=== PATIENT | male | born 1960 | race Caucasian/White ===

== ENCOUNTER 2020-10-02 16:54 | Emergency (ER) | payer OTHER, SELFPAY ==
[2020-10-02 18:43] VITALS: BP 143/88; PULSE 75; RESP 18; TEMP 37.4; O2SAT 96; BMI 31.0
--- NOTE | 2020-10-02 19:18 | ED_ITS ---
HPI - General Adult General Chief complaint: Upper Respiratory Symptoms Stated complaint: covid symptoms Time Seen by Provider: 10/02/20 17:34 Source: patient Mode of arrival: ambulatory Limitations: no limitations History of Present Illness HPI narrative: 60-year-old male who presents the emergency department for evaluation of COVID 19 like symptoms. The patient states that his mother, brother and sister tested positive for COVID-19. He states that 1 week prior he tested negative. He states that 4 days prior he started to get sick with COVID like symptoms he is currently complaining of headache, feeling hot and cold, chills, palpitations, nonproductive cough, shortness of breath, myalgias, and diarrhea. He states that over the past 2 days he had multiple episodes of diarrhea, too numerous to count which improved today. He states that he has occasional chest discomfort with coughing which he describes as sharp and mild in intensity he states that he has been taking TheraFlu at home and [place] tea with honey with no improvement of his symptoms. He denied dyspnea on exertion, weakness, lightheadedness or dizziness.. Related Data Allergies Allergy/AdvReac Type Severity Reaction Status Date / Time No Known Allergies Allergy Unverified 05/26/20 19:44 [No Known Allergies*] Review of Systems Review of Systems: Yes all other systems are reviewed and are negative Neurologic: Reports Abnormal speech present [facility] Past Medical History [facility] Narrative: The patient lives with his mother and sister were both COVID positive. He denies tobacco use, he denies alcohol use, he smokes marijuana occasionally, he last smoked marijuana 2 weeks prior. Medical History Gout HTN (hypertension) Social History Social History Advance Directives: No Advance Directives Information Provided: No Physical Exam Vital Signs: Vital Signs: Last Vital Signs Temp 99.3 F 10/02/20 18:43 Pulse 75 10/02/20 18:43 Resp 18 10/02/20 18:43 BP 143/88 H 10/02/20 18:43 Pulse Ox 96 10/02/20 18:43 Body Mass Index 31.0 Const: General: cooperative and healthy appearing Orientation/consciousness: oriented to person and oriented to place L imitations: no limitations HENMT: Head: Yes normal to inspection, Yes normocephalic and Yes atraumatic Ears: external ears normal General nose exam: Normal external nose present Face and sinus: Yes normal facial exam Mouth: Normal oral and palatal mucosa present Throat: Yes posterior oropharynx normal Eyes: Periorbital: periorbital findings normal Eyelids: Yes eyelids normal Conjunctivae: conjunctivae normal Sclerae: sclerae normal Corneas: corneas normal Pupils: Equal, round and reactive pupils present Direct Ophthalmoscopy: normal light reflex Neck: Neck: Yes full ROM, Yes no lymphadenopathy, Yes no meningeal signs, Yes trachea midline and Yes supple Chest: Chest palpation & inspection: normal inspection of the chest and normal palpation of entire chest wall Resp: Effort & Inspection: normal respiratory effort and able to speak in complete sentences Auscultation: clear to auscultation bilaterally Cardio: Rate: regular rate Rhythm: regular rhythm Heart sounds: S1 normal heart sound present, S2 normal heart sound present and no murmurs GI: Inspection: Yes normal to inspection Palpation (GI): Soft to palpation, nontender, no guarding, not rigid and No hepatosplenomegaly present : General: Yes no CVA tenderness Back/Spine/Pelvis: Back: no CVA tenderness Cervical Spine: normal cervical lordosis Thoracic/Lumbar Spine: thoracic and lumbar spine normal to inspection Skin: Lesions: no lesions Rashes: no rashes Wounds: no wounds Neuro: General: oriented to person, oriented to place and no meningeal signs Cranial nerves: Yes Equal, round and reactive pupils present Cognition (Neuro): normal cognition Speech: Abnormal speech present Motor exam (neuro): 5/5 motor strength present throughout Extrem: General: Yes normal to inspection and Yes full ROM Psych: Appearance: well kempt Mental Status: mental status grossly normal Speech and movement: Normal speech and movement present Affect: normal affect Attitude: cooperative Thought process: Normal thought process present Thought content: Normal thought content present Course Course Course Narrative: 60-year-old male who presents emergency department for evaluation of COVID like symptoms x4 days, the patient has had multiple primary exposures. At this time, he appears to be stable with an O2 saturation of 96% on room air suggests he does not have hypoxia. The patient will be tested for COVID-19 and discharged home with printed instructions on isolation/quarantine. 213: The patient's COVID-19 test is positive. I did call the patient and informed him of this positive result. Medical Decision Making Lab Data Labs: Lab Results 10/02/20 Range/Units 19:32 COVID-19 ([place]) Positive A (Negative) COVID-19 Clin Com See Note Discharge Plan Discharge Clinical Impression: Close exposure to COVID-19 virus, COVID-19 Patient Disposition: Home, Self-Care Instructions: COVID-19 (Coronavirus Disease 2019) (ED) Additional Instructions: Based on your symptoms and history, you were tested forCOVID-19. Your RESULT IS PENDING at this time. Your result should be back today, I will call you with the results. You will be contacted with either a NEGATIVE OR POSITIVE results. Please wait until we contact you for your results. Based on your evaluation today, it is okay to send you home. Please plan for self quarantine for up to 14 days. Do not expose yourself to others. You may not go to work. If testing does come back negative you may return to activities as long as you are no longer having any symptoms for at least 3 days. Please continue to wear a mask, follow cold instructions and wash your hands frequently. You may take Tylenol 500 mg pills, 2 pills every 4 hours as needed for pain or fever. You may also take ibuprofen(Motrin/Advil) 200 mg pills, 3 pills every 6 hours as needed for pain or fever. Patient seen in the emergency department should be excused from work until negative test results AND until 72 hours without any symptoms have gone away completely OR at least 10 days have passed since symptoms first appeared or since last exposure to COVID-19 positive patient CDC Guidelines for home isolation: - Stay away from others - WEAR A MASK if you are sick AND STAY HOME - Cover your mouth and nose with a tissue when you cough or sneeze. Dispose of tissues in a lined trash can and wash your hands immediately with soap and water for at least 20 seconds. If soap and water are not available, clean hands with alcohol-based hand cane flume watcher that contains at least 60% alcohol. - Clean your hands often with soap and water for at least 20 seconds - Avoid touching your eyes, nose and mouth with unwashed hands - Do not share dishes, drinking glasses, cups, eating utensils, towels, or bedding with other people in your home. After using these items, wash them thoroughly with soap and water or put in the greenstone polisher operator. - Clean high-touch surfaces in your isolation area ( sick room and bathroom) every day; let a caregiver clean and disinfect high-touch surfaces in other areas of the home. Clean the area or item with soap and water or another detergent if it is dirty. Then, use a household disinfectant. - Limit contact with pets and animals: If you must care for a pet, wash your hands before and after interacting with them). Interventions: ED Discharge Assessment Last Done: 10/02/20 19:36 Discharge Date/Time: 10/02/20 19:36
[2020-10-02 19:47] LABS: COVID-19 Test Positive (Negative); IDNOW Serial# 9DD0AD1C
== END 2020-10-02 19:36 | disposition home or self-care (01) ==
PROVIDERS: Emergency Provider Emergency Medicine Emergency Medical Services
DX: U07.1 COVID-19 (principal); R51.9 Headache, unspecified; R05 Cough; M79.10 Myalgia, unspecified site
CPT/HCPCS: 36415; 87635; 99283

== ENCOUNTER 2020-12-18 15:10 | Emergency (ER) | payer OTHER, SELFPAY ==
[2020-12-18 15:32] VITALS: BP 152/87; PULSE 72; RESP 16; TEMP 37.2; O2SAT 97; BMI 29.5
--- NOTE | 2020-12-18 16:30 | ED_ITS ---
HPI - General Adult General Chief complaint: General Medical Stated complaint: ?Insect bite Time Seen by Provider: 12/18/20 16:30 Source: patient Mode of arrival: ambulatory Limitations: no limitations History of Present Illness HPI narrative: States right posterior elbow pain and swelling x2 days Onset (ago): day(s) (2) Quality: aching Pain Consistency: intermittent Relieving factors: cold therapy and immobilization Exacerbating factors: none Associated symptoms: denies other symptoms Treatments prior to arrival: none Related Data Previous Rx's Medication Instructions Recorded ibuprofen 800 mg PO Q8H PRN #30 tab 12/18/20 Allergies Allergy/AdvReac Type Severity Reaction Status Date / Time No Known Allergies Allergy Unverified 05/26/20 19:44 [No Known Allergies*] Review of Systems Review of Systems: Constitutional: No Weight loss, No Fever, No Chills, No Night Sweats, No Fatigue, No Malaise ENT/Mouth: No Hearing loss, No Ear Pain, No Nasal Congestion, No Sinus Pain, No Hoarseness, No sore throat, No Rhinorrhea, No Swallowing Difficulty Eyes: No Eye Pain, No Swelling, No Redness, No Foreign Body, No Discharge, No Vision Changes Cardiovascular: Negative Respiratory: Negative Gastrointestinal: Negative Genitourinary: Negative Musculoskeletal: No joint pain, No Myalgias,, as noted per HPI Skin: No Skin Lesions, No rash Neuro: No Weakness, No Numbness, No Paresthesias, No Loss of Consciousness, No Dizziness, No Headache Psych: No Social Issues Heme/Lymph: No Bruising, No Bleeding,No Lymphadenopathy Endocrine: No Polyuria, No Polydipsia, No Temperature Intolerance Yes all other systems are reviewed and are negative [facility], [facility] Past Medical History Medical History Gout HTN (hypertension) Physical Exam Vital Signs: Vital Signs: Last Vital Signs Temp 98.9 F 12/18/20 15:32 Pulse 72 12/18/20 15:32 Resp 16 12/18/20 15:32 BP 152/87 H 12/18/20 15:32 Pulse Ox 97 12/18/20 15:32 Body Mass Index 29.5 Reviewed Const: General: cooperative and healthy appearing; No acute distress or intoxicated appearing Nutritional Appearance: average body habitus Orientation/consciousness: patient oriented x3 HENMT: Head: Yes normal to inspection Ears: hearing grossly normal bilaterally Eyes: General: appearance normal, both eyes and all related structures Visual Lorenz: normal visual lorenz by confrontation Chest: Chest palpation & inspection: normal inspection of the chest Resp: Effort & Inspection: normal respiratory effort Cardio: Jugular venous distension: no JVD Rhythm: regular rhythm Heart sounds: S1 normal heart sound present and S2 normal heart sound present : General: Yes no CVA tenderness Back/Spine/Pelvis: Back: no CVA tenderness Skin: General skin exam: no rashes or lesions noted Neuro: General: patient oriented x3 Extrem: Other: Distally neurovascularly intact, pulses within normal limits her full range of motion. General: Yes normal to inspection Right upper ex tremity: elbow/forearm (Right posterior elbow at the olecranon swelling soft consistent with bursit) Details: abnormal to inspection (No erythema or swelling. No discharge.) and tenderness Course Course Course Narrative: AP olecranon bursitis without evidence of infection/ cellulitis. Blake wrap, compress, NSAIDs. Precaution return follow-up instructions provided. Feels comfortable plan. Stable for discharge. Discharge Plan Discharge Clinical Impression: Bursitis of elbow Patient Disposition: Home, Self-Care Instructions: Elbow Bursitis (ED) Additional Instructions: Blake wrap for compress Cold compresses Ibuprofen for pain discomfort Return if any concerns or worsening symptoms otherwise follow-up with her primary care doctor as discussed Thank you Prescriptions: New ibuprofen 800 mg tablet 800 mg PO Q8H PRN (Reason: pain) Qty: 30 RF: 0 Referrals: Jolie Ferris MD [Physician] - 1 week Interventions: ED Discharge Assessment Last Done: 12/18/20 16:48 Discharge Date/Time: 12/18/20 16:49
== END 2020-12-18 16:49 | disposition home or self-care (01) ==
PROVIDERS: Emergency Provider Emergency Medicine Emergency Medical Services
DX: M70.31 Other bursitis of elbow, right elbow (principal); Y93.9 Activity, unspecified; M25.521 Pain in right elbow; I10 Essential (primary) hypertension
CPT/HCPCS: 99283